=== PATIENT | male | born 1930 | race Caucasian/White ===

== ENCOUNTER 2018-06-02 15:24 | Outpatient (CLI) | payer MEDICARE, OTHER ==
[~2018-06-02 15:24] MED LIST: AMLO10TA PO; CIPR-259 PO; DOCU250C87 PO; FLO0.4C PO; LOSA50TA3 PO; MAGN400C PO; OMEP-50 PO
== END 2018-06-02 23:59 | disposition home or self-care (01) ==
LOC: RAD 15:24
PROVIDERS: ATTEND Family Medicine
DX: R13.12 Dysphagia, oropharyngeal phase (principal); I69.391 Dysphagia following cerebral infarction; I69.322 Dysarthria following cerebral infarction; G20 Parkinson's disease; I10 Essential (primary) hypertension; Z79.899 Other long term (current) drug therapy
CPT/HCPCS: 74230